=== PATIENT | male | born 1970 | race Caucasian/White ===

== ENCOUNTER 2016-07-31 08:48 | Emergency (ER) | payer OTHER ==
[~2016-07-31] VITALS: Ht 175.3 cm; Wt 88.5 kg
[2016-07-31 09:08] VITALS: BP 143/75
== END 2016-07-31 09:10 | disposition home or self-care (01) ==
LOC: ER 08:50
DX: M54.5 Low back pain (principal); G89.29 Other chronic pain; F11.20 Opioid dependence, uncomplicated; F17.220 Nicotine dependence, chewing tobacco, uncomplicated; E78.00 Pure hypercholesterolemia, unspecified; Z90.49 Acquired absence of other specified parts of digestive tract; Z98.890 Other specified postprocedural states
CPT/HCPCS: 99283; A4606; Z7610